=== PATIENT | female | born 1990 | race American Indian/Alaskan Native ===

== ENCOUNTER 2020-09-19 18:14 | Outpatient (CLI) | payer MEDICAID ==
[2020-09-19 18:24] VITALS: BP 132/67
== END 2020-09-19 22:02 | disposition home or self-care (01) ==
LOC: TRG 18:14 → APU 18:15 → TRG 22:02
PROVIDERS: ATTEND Obstetrics & Gynecology
DX: Z34.93 Encounter for supervision of normal pregnancy, unspecified, third trimester (principal); Z3A.39 39 weeks gestation of pregnancy
CPT/HCPCS: 59025

== ENCOUNTER 2021-01-09 06:12 | Day surgery (SDC) | payer BC, MEDICAID ==
--- NOTE | 2021-01-08 22:07 | History and Physical Report ---
History of Present Illness Date of examination: 01/08/21 Chief complaint: ASC-H pap smear, Discordant Cervical Biopsy History of present illness: Pt is a 30 year old who presents for surgical management of ASC- H pap smear on 11/13/20 and no HERI on colposcopic biopsies on 12/17/20. 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 HPI ) Family/Genetic History: diabetes, hypertension, cancer (breast ) Social history: no significant social history, - Obstetrical History : 4 Para: 4 Hx # Term Pregnancies: 4 Number of Pregnancies: 0 Spontaneous Abortions: 0 Induced : 0 Number of Living Children: 4 Medications and Allergies Allergies Allergy/AdvReac Type Severity Reaction Status Date / Time scallops Allergy Angioedema Verified 01/02/21 15:27 Home Medications Medication Instructions Recorded Confirmed Last Taken Type Vit-Fe Fumar-FA [ 1 tab PO QDAY #30 tablet 08/17/15 01/02/21 Unknown Rx Vitamin] Active Meds: Active Medications Lactated Ringer's (Lactated Ringers) 1,000 mls @ 100 mls/hr IV DIRECT BRANDON Stop: 01/09/21 23:59 Midazolam HCl (Midazolam 2 Mg/2 Ml Inj) 2 mg IV PREOP NR Stop: 01/09/21 20:00 Review of Systems All systems: negative - Physical Exam Breasts: Positive: deferred Cardiovascular: Regular rate Lungs: Positive: Clear to auscultation Abdomen: Positive: soft Extremities: Positive: normal Results All other labs normal. Assessment and Plan A: ASC-H pap smear Discordant Colposcopic Biopsies Obesity P: Proceed with Loop Electrosurgical Excision Procedure and other indicated procedures
[~2021-01-09 06:12] MED LIST: LACTATED RINGERS 1,000 ML IV SCH; MIDAZOLAM 2 MG/2 ML INJ IV NR; ceFAZolin/Water 2 GM/20 ML 2 GM/20 ML SYRINGE IV NR
[2021-01-09] MEDS ORDERED: BACTERIOSTATIC SODIUM CHLORIDE 0.9% 30 ML VIAL INFILTRATI ONE (06:51)
[2021-01-09 07:18] LABS: Hemoglobin 12.4 gm/dl (10.1-14.3); Mean Corpuscular HGB Conc 33 % (30-34); Mean Corpuscular Volume 77 fl (79-97); Platelet Count 274 K/mm3 (140-440); Red Blood Count 4.94 M/mm3 (3.65-5.03); Red Cell Distribution Width 17.4 % (13.2-15.2)
--- NOTE | 2021-01-09 07:23 | Anesthesia Consultation ---
Anesthesia Consult and Med Hx Date of service: 01/09/21 - Airway Anesthetic Teeth Evaluation: Good ROM Head & Neck: Adequate Mental/Hyoid Distance: Adequate Mallampati Class: Class III Intubation Access Assessment: Possibly Difficult - Pre-Operative Health Status ASA Pre-Surgery Classification: ASA1 Proposed Anesthetic Plan: General - Pulmonary Hx Smoking: No Hx Respiratory Symptoms: No - Cardiovascular System Hx Hypertension: No - Central Nervous System CVA: No - Endocrine Hx Renal Disease: No Hx Liver Disease: No Hx Insulin Dependent Diabetes: No Hx Non-Insulin Dependent Diabetes: No Hx Thyroid Disease: No - Other Systems Hx Obesity: Yes (BMI 32) - Additional Comments Anesthesia Medical History Comments: No hx anesthetic complications.
--- NOTE | 2021-01-09 07:23 | Anesthesia Day of Surgery ---
Anesthesia Day of Surgery - Day of Surgery Patient Examined: Yes Patient H&P Reviewed: Yes Patient is NPO: Yes
[2021-01-09] MEDS ORDERED: fentaNYL 100 MCG/2 ML INJ IV PRN (08:00)
[2021-01-09] MEDS ORDERED: HYDROcodone/ACETAMINOPHEN 5-325 MG TAB PO PRN (08:00)
[2021-01-09] MEDS ORDERED: ONDANSETRON 4 MG/2 ML INJ IV PRN (08:00)
[2021-01-09] MEDS ORDERED: POTASSIUM IODIDE/IODINE (LUGOLS) 30 ML TP ONE ×2 (09:22→10:10)
[2021-01-09] MEDS ORDERED: fentaNYL 100 MCG/2 ML INJ ONE (09:22)
[2021-01-09] MEDS ORDERED: propofoL 200 MG/20 ML VIAL IV ONE (09:22)
[2021-01-09] MEDS ORDERED: LIDOCAINE MPF (2%) 20 MG/1 ML VIAL 5 ML ONE (09:22)
[2021-01-09] MEDS ORDERED: GELATIN SPONGE SIZE 100 TP ONE (09:22)
[2021-01-09] MEDS ORDERED: BUPIVACAINE/PF (0.5%) 5 MG/1 ML 30 ML VIAL INFILTRATI ONE (09:22)
[2021-01-09] MEDS ORDERED: FERRIC SUBSULFATE TOPICAL SOLN 8 ML TP ONE ×2 (09:22→10:12)
[2021-01-09] MEDS ORDERED: VASOPRESSIN 20 UNIT/1 ML INJ ONE (09:23)
[2021-01-09] MEDS ORDERED: SODIUM CHLORIDE 0.9% 100 ML ONE (09:23)
[2021-01-09] MEDS ORDERED: SILVER NITRATE APPLICATOR 1 EA TP ONE ×2 (10:00→10:12)
[2021-01-09] MEDS ORDERED: VASOPRESSIN 20 UNIT/1 ML INJ IV ONE (10:10)
[2021-01-09] MEDS ORDERED: SODIUM CHLORIDE 0.9% 100 ML IVPB IV ONE (10:11)
--- NOTE | 2021-01-09 10:40 | Operative Report ---
Operative Report Operative Report: Date of procedure: January 09, 2021 Preoperative diagnosis: 1) ASC-H pap smear, 2) Discordant Colposcopic Biopsies 3) Obesity Postoperative diagnosis: Same Procedure: Loop Electrosurgical Excision Procedure (LEEP) Surgeon: Lisset Haynes MD Anesthesia: General with LMA Findings: Anterior portion of the endocervix is non-staining after application of Lugol's solution EBL: 30 mL Specimens: Cervical biopsy tagged at 12 o clock to pathology Drains: None Complications: None. Counts correct x 2 Disposition: stable to PACU Indication for procedure: Pt is a 30 year old who presents for surgical management of ASC-H pap smear and discordant colposcopic biopsies. Operation in detail: After the risks, benefits, alternatives, and complications were explained to the patient, she gave informed consent for the procedure. She was subsequently taken to the operating room with her IV noted to be running well and placed in the dorsal supine position. SCDs were noted to be in place and functioning. General anesthesia was induced without difficulty. The patient was then placed in the dorsal lithotomy position and prepped and draped in a normal sterile fashion. A timeout was performed. The bladder was drained of 150 mL of urine prior to the start of the procedure. A coated speculum was then placed in the vagina for visualization of the cervix. A coated tenaculum was placed on the anterior lip of the cervix for traction. The cervix was injected with a dilute Vasopressin solution at 12, 3 , 6, and 9 o'clock. Lugol's solution was then placed on cervix with non staining area noted on the anterior portion of the cervix immediately superior to the external os . A medium loop was used to excise cervical biopsy specimen that was tagged at 12 o'clock and then sent to pathology. Rollerball cautery was used to obtain hemostasis of the cervical bed. Monsel's solution was placed over the cervical bed. Hemostasis was noted. The tenaculum was removed atraumatically. Hemostasis of the tenaculum puncture sites was achieved using silver nitrate. All instruments were removed from the vagina atraumatically and the procedure was then ended. The patient was then replaced into the dorsal supine position and extubated without difficulty. She was then taken to the PACU in stable condition. All counts were correct x 2.
--- NOTE | 2021-01-09 10:41 | Short Stay Summary ---
Short Stay Documentation Date of service: 01/09/21 - History H&P: dictated Social history: no significant social history, - Allergies and Medications Current Medications: Allergies scallops Allergy (Verified 01/02/21 15:27) Angioedema Home Medications Medication Instructions Recorded Confirmed Last Taken Type Vit-Fe Fumar-FA [ 1 tab PO QDAY #30 tablet 08/17/15 01/09/21 01/02/21 Rx Vitamin] Active Medications Hydrocodone Bitart/Acetaminophen (Hydrocodone/Acetaminophen 5-325 Mg Tab) 2 each PO ONCE PRN PRN Reason: Pain, Moderate (4-6) Stop: 01/09/21 18:00 Fentanyl (Fentanyl 100 Mcg/2 Ml Inj) 50 mcg IV Q5MIN PRN PRN Reason: Pain , Severe (7-10) Stop: 01/09/21 18:00 Lactated Ringer's (Lactated Ringers) 1,000 mls @ 100 mls/hr IV DIRECT BRANDON Stop: 01/09/21 23:59 Last Admin: 01/09/21 07:08 Dose: 100 mls/hr Documented by: Cefazolin Sodium (Ancef/Sterile Water 2 Gm/20 Ml) 2 gm in 20 mls @ 80 mls/hr IV PREOP NR; Protocol Stop: 01/09/21 23:59 Midazolam HCl (Midazolam 2 Mg/2 Ml Inj) 2 mg IV PREOP NR Stop: 01/09/21 20:00 Ondansetron HCl (Ondansetron 4 Mg/2 Ml Inj) 4 mg IV ONCE PRN PRN Reason: Nausea And Vomiting Stop: 01/09/21 17:00 - Physical exam Breasts: deferred - Brief post op/procedure progress note Date of procedure: 01/09/21 Pre-op diagnosis: ASC-H, Discordant Cervical Biopsies Post-op diagnosis: same Procedure: Loop Electrosurigcal Excision Procedure Anesthesia: GETA Findings: Anterior portion of the endocervix is non-staining after application of Lugol's solution Surgeon: REYMUNDO ARMENDARIZ Estimated blood loss: minimal (30 mL) Pathology: list (cervicla biopsy to pathology) Specimen disposition: to lab Condition: stable - Hospital course Hospital course: Patient underwent loop electrosurgical excision procedure which she tolerated well. She was observed in the PACU until she met discharge criteria. She will follow-up in the office in 1 week. - Disposition Condition at discharge: Stable Disposition: DC-01 TO HOME OR SELFCARE - Discharge Diagnoses (1) Pap smear of cervix with ASCUS, cannot exclude HGSIL Status: Acute Short Stay Discharge Plan Activity: other (Nothing in vagina,no intercourse, no tub baths for 4 wks ) Weight Bearing Status: Full Weight Bearing Diet: regular Follow up with: REYMUNDO ARMENDARIZ MD [Staff Physician] - 7 Days
[2021-01-09 11:32] VITALS: BP 114/68
--- NOTE | 2021-01-09 16:40 | Post Anesthesia Evaluation ---
- Post Anesthesia Evaluation Patient Participated: Yes Airway Patent: Yes Stable Respiratory Function: Yes Nausea/Vomiting: No Temp > 96.8F: Yes Pain Manageable: Yes Adequeate Hydration: Yes Anesthesia Complications: No
== END 2021-01-09 12:12 | disposition home or self-care (01) ==
LOC: OR 06:12
PROVIDERS: ATTEND Obstetrics & Gynecology
DX: R87.611 Atypical squamous cells cannot exclude high grade squamous intraepithelial lesion on cytologic smear of cervix (ASC-H) (principal); N88.8 Other specified noninflammatory disorders of cervix uteri; N72 Inflammatory disease of cervix uteri; D64.9 Anemia, unspecified; E66.9 Obesity, unspecified; G43.909 Migraine, unspecified, not intractable, without status migrainosus; Z88.8 Allergy status to other drugs, medicaments and biological substances; Z79.899 Other long term (current) drug therapy; Z83.3 Family history of diabetes mellitus; Z80.8 Family history of malignant neoplasm of other organs or systems; Z68.32 Body mass index [BMI] 32.0-32.9, adult; Z82.49 Family history of ischemic heart disease and other diseases of the circulatory system
CPT/HCPCS: 36415; 57522; 81025; 85027; 88307; A4649; J0690; J2704; J3010; J7120; J2250